=== PATIENT | female | born 1945 | race Caucasian/White ===

== ENCOUNTER → 2016-12-23 | Outpatient (CLI) | payer OTHER ==
[~2016-12-23] MED LIST: ALLEGRA PO; CALCIUM 500 + D1 TAB PO; CERTAGEN PO; GLUCOSAMINE CHONDROI; NASONEX17 GM; NEPHROCAPS CAPSU1 MG PO; PREVACID PO; SLOW-MAG64 MG PO; UNITHROID; VIT E PO; VITAMIN C PO; ZOCOR PO
--- NOTE | ~2016-12-23 | MY29 ---
[facility] A Service of [facility] RADIOLOGY TEXT RESULTS PATIENT: MAGNOLIA BAXTER LOCATION: [facility] : 49 UNIT #: [id number] AGE: [address]: Oneyda León MD SEX: F ORDER DR: [id number] [address] [place], [place] [address] [id number] O MR#: [id number] Acc #: [id number] NAME: MAGNOLIA BAXTER : 1945 SEX: F STUDY DATE/TIME: 12/23/2016 10:55 UNIT: [facility] ROOM: STUDY DESCRIPTION: MY [facility] SCREENING W/ CAD BILAT Attending Physician: Oneyda León M.D. Referring Physician: Oneyda León M.D. Ordering Physician: Oneyda León M.D. Primary Care Physician: Oneyda León M.D. MEDICAL IMAGING REPORT This report is preliminary unless electronic signature is present EXAMINATION Bilateral digital screening mammogram with CAD. DATE 12/23/2016 HISTORY 71-year-old female with no personal or family history of breast cancer or current complaints. COMPARISON Bilateral screening mammogram 12/17/2015, 11/04/2014, 10/15/2013. TECHNIQUE CC and MLO views were obtained of each breast utilizing digital technique and reviewed with an FDA-approved CAD device. FINDINGS Scattered fibroglandular densities are present bilaterally. No new or developing nodule, architectural distortion or clustered microcalcification is seen. IMPRESSION 1. BIRADS 1. Negative screening mammogram. Routine screening mammogram is recommended in one year. Patients over the age of 40 are entered into a reminder system with target due date for the next mammogram. A result letter will also be sent to the patient. BIRADS: 1 Negative. [facility] A Service of [facility] & [facility] RADIOLOGY TEXT RESULTS PATIENT: MAGNOLIA BAXTER LOCATION: [facility] : 49 UNIT #: [id number] AGE: [address]: Oneyda León MD SEX: F ORDER DR: Dictated by... Rita Ta M.D. THIS IS AN ELECTRONICALLY VERIFIED REPORT Rita Ta M.D. at 12/24/2016 1:11 PM ROMAN/renata TD: 12/23/2016 20:50 JOB #: [id number] MEDICAL IMAGING REPORT Page 1 of 1 COPY
--- NOTE | ~2016-12-23 | BD1 ---
[facility] A Service of [facility] & [facility] RADIOLOGY TEXT RESULTS PATIENT: MAGNOLIA BAXTER LOCATION: [facility] : 49 UNIT #: [id number] AGE: [address]: Oneyda León MD SEX: F ORDER DR: [id number] [facility] [address] [place], [place] [address] [id number] O MR#: [id number] Acc #: [id number] NAME: MAGNOLIA BAXTER : 1945 SEX: F STUDY DATE/TIME: 12/23/2016 10:54 UNIT: [facility] ROOM: STUDY DESCRIPTION: BD Dexa Bone Dens 1+ Site Attending Physician: Oneyda León M.D. Referring Physician: Oneyda León M.D. Ordering Physician: Oneyda León M.D. Primary Care Physician: Oneyda León M.D. MEDICAL IMAGING REPORT This report is preliminary unless electronic signature is present EXAM DXA scan 12/23/2016 HISTORY Status post menopause with no hormone replacement therapy. Osteopenia. Rheumatoid arthritis. Hypertension with blood pressure medication for 2 years. Thyroid medication (levothyroxine) use. FINDINGS Bone mineral density in the lumbar spine, from L1-L4, was 0.874 g/cm2, which is 1.6 standard deviations below the mean when compared to the young adult reference population, which is characteristic of osteopenia. This is 0.5 standard deviations above the mean when compared to the age-match population. Compared with 11/04/2014, there has been an increase in bone mineral density in the lumbar spine of 2.9%. Bone mineral density in the left femoral neck was 0.729 g/cm2, which is 1.1 standard deviations below the mean when compared to the young adult reference population, which is characteristic of osteopenia. This is 0.7 standard deviations above the mean when compared to the age-match population. Compared with 11/04/2014, there has been a decrease in bone mineral density in the left hip of 1.7%. IMPRESSION Bone mineral density in the lumbar spine and left hip characteristic of osteopenia. Compared with 11/04/2014, there has been an increase in bone mineral density in the lumbar spine and a decrease in bone mineral density in the left hip. Dictated by... Marvin Islas M.D. THIS IS AN ELECTRONICALLY VERIFIED REPORT Marvin Islas M.D. at 12/23/2016 3:48 PM [facility] A Service of [facility] & [facility] RADIOLOGY TEXT RESULTS PATIENT: MAGNOLIA BAXTER [id number] [birth year] UNIT #: [id number] AGE: [address]: Oneyda León MD SEX: F ORDER DR: Lester TD: 12/23/2016 13:50 JOB #: [id number] MEDICAL IMAGING REPORT Page 1 of 1 COPY
== END | disposition home or self-care (01) ==
LOC: CWCC 12-19 10:30
DX: Z12.31 Encounter for screening mammogram for malignant neoplasm of breast (principal); Z13.820 Encounter for screening for osteoporosis; N95.2 Postmenopausal atrophic vaginitis; M85.88 Other specified disorders of bone density and structure, other site; Z88.1 Allergy status to other antibiotic agents; Z88.2 Allergy status to sulfonamides
CPT/HCPCS: 77080; G0202